=== PATIENT | female | born 1935 | race Caucasian/White ===

== ENCOUNTER → 2017-07-16 | Outpatient (CLI) | payer MEDICARE, OTHER ==
[2017-07-16 10:22] LABS: ALBUMIN 3.7 g/dL (3.4-5.0); CALCIUM 8.9 mg/dL (8.5-10.1); POTASSIUM 3.7 mmol/L (3.5-5.1); TOTAL BILIRUBIN 0.4 mg/dL (0.2-1.0)
[2017-07-16 11:20] LABS: ALBUMIN/GLOBULIN RATIO 1.4 (1.0-1.7); CREATININE 0.5 mg/dL (0.6-1.0); GFR 118.7; TOTAL PROTEIN 6.4 g/dL (6.4-8.2)
[2017-07-17 04:07] LABS: HEMOGLOBIN A1C 5.7 % (4.8-5.6)
== END | disposition home or self-care (01) ==
LOC: SPEC 09:56
PROVIDERS: ATTEND Internal Medicine
DX: E11.9 Type 2 diabetes mellitus without complications (principal); I10 Essential (primary) hypertension; I48.91 Unspecified atrial fibrillation
CPT/HCPCS: 36415; 80053; 80061; 82043; 83036

== ENCOUNTER → 2017-09-08 | Outpatient (CLI) | payer MEDICARE, OTHER ==
[2017-09-08 15:12] LABS: BILIRUBIN,URINE NEG (NEG); CLARITY,URINE CLEAR; COLOR,URINE YELLOW; GLUCOSE,URINE NEG (NEG); NITRITE,URINE NEG (NEG); UROBILINOGEN,URINE 1 mg/dL (0.2 mg/dL)
[2017-09-08 15:13] LABS: BACTERIA,URINE 0 /HPF (0-FEW); SQUAMOUS EPITHELIAL CELL,UR FEW /LPF; WBC,URINE OCC /HPF (0-4)
== END | disposition home or self-care (01) ==
LOC: SPEC 14:24
PROVIDERS: ATTEND Internal Medicine
DX: Z00.00 Encounter for general adult medical examination without abnormal findings (principal)
CPT/HCPCS: 81001

== ENCOUNTER → 2018-01-04 | Outpatient (CLI) | payer MEDICARE, OTHER | END | disposition home or self-care (01) | LOC: SURG 09:57 | PROVIDERS: ATTEND Anesthesiology | DX: M47.26 Other spondylosis with radiculopathy, lumbar region (principal) | CPT/HCPCS: 99204 ==

== ENCOUNTER → 2018-03-01 | Outpatient (CLI) | payer MEDICARE, OTHER ==
[~2018-03-01] MED LIST: 0.9 % SODIUM CHLORIDE 10 ML VIAL ONE; BUPIVACAINE MPF 0.25% 10 ML VIAL. ONE; DEXAMETHASONE SOD PHOS 4 MG/ML VIAL ONE; IOHEXOL 300 MG/ML 50 ML VIAL. ONE; LIDOCAINE 1% PF 30 ML VIAL. ONE
== END ==
LOC: SURG 08:12
PROVIDERS: ATTEND Anesthesiology
DX: M54.16 Radiculopathy, lumbar region (principal)
CPT/HCPCS: 62323; J1100; J2001; J3490; Q9967

== ENCOUNTER → 2018-06-28 | Outpatient (CLI) | payer MEDICARE, OTHER ==
[~2018-06-28] MED LIST changes: -BUPIVACAINE MPF 0.25% 10 ML VIAL. ONE; +LIDOCAINE 1% PF 2 ML VIAL. ONE; -LIDOCAINE 1% PF 30 ML VIAL. ONE
== END | disposition home or self-care (01) ==
LOC: SURG 13:19
PROVIDERS: ATTEND Anesthesiology
DX: M54.16 Radiculopathy, lumbar region (principal); Z88.1 Allergy status to other antibiotic agents; Z79.84 Long term (current) use of oral hypoglycemic drugs; Z79.899 Other long term (current) drug therapy; M19.90 Unspecified osteoarthritis, unspecified site; Z98.890 Other specified postprocedural states
CPT/HCPCS: 64483; 64484; J1100; Q9967

== ENCOUNTER → 2018-09-06 | Outpatient (CLI) | payer MEDICARE, OTHER | END | disposition home or self-care (01) | LOC: SURG 13:17 | PROVIDERS: ATTEND Anesthesiology | DX: M47.26 Other spondylosis with radiculopathy, lumbar region (principal); I25.10 Atherosclerotic heart disease of native coronary artery without angina pectoris; I48.91 Unspecified atrial fibrillation; I10 Essential (primary) hypertension; M19.90 Unspecified osteoarthritis, unspecified site; Z88.1 Allergy status to other antibiotic agents; Z96.653 Presence of artificial knee joint, bilateral | CPT/HCPCS: 99214 ==

== ENCOUNTER 2019-01-06 15:50 | Emergency (ER) | payer MEDICARE, OTHER ==
[~2019-01-06] VITALS: Ht 165.1 cm; Wt 105.2 kg
--- NOTE | 2019-01-06 16:19 | PHYS DOC ---
Adult General Chief Complaint Chief Complaint: UPPER EXTREMITY PAIN [facility] HPI 83-year-old female presents with left upper extremity pain. The patient was walking with her walker and went to take a break. She only locked one side of the walker when she went to sit down at rolled out from under her. She stuck out her left hand to catch herself and she hit with her left arm outstretched and then rolled onto her backside. She denies hitting her head or losing consciousness. At this time her left wrist, forearm, and shoulder are sore and she wants to make sure that is not broken. She is able to move all of her joints. She denies any other injuries. Review of Systems Review of Systems Constitutional: Denies fever or chills [] Eyes: Denies change in visual acuity, redness, or eye pain [] HENT: Denies nasal congestion or sore throat [] Respiratory: Denies cough or shortness of breath [] Cardiovascular: No additional information not addressed in HPI [] GI: Denies abdominal pain, nausea, vomiting, bloody stools or diarrhea [] : Denies dysuria or hematuria [] Musculoskeletal: Left wrist, forearm, and shoulder pain[] Integument: Denies rash or skin lesions [] Neurologic: Denies headache, focal weakness or sensory changes [] Endocrine: Denies polyuria or polydipsia [] All other systems were reviewed and found to be within normal limits, except as documented in this note. Allergies Allergies Allergies Coded Allergies Type Severity Reaction Last Updated Verified amoxicillin Allergy Mild 01/06/19 Yes Physical Exam Physical Exam Constitutional: Well developed, well nourished, no acute distress, non-toxic appearance. [] HENT: Normocephalic, atraumatic, bilateral external ears normal, oropharynx moist, no oral exudates, nose normal. [] Eyes: PERRLA, EOMI, conjunctiva normal, no discharge. [] Neck: Normal range of motion, no tenderness, supple, no stridor. [] Cardiovascular:Heart rate regular rhythm, no murmur [] Lungs & Thorax: Bilateral breath sounds clear to auscultation [] Abdomen: Bowel sounds normal, soft, no tenderness, no masses, no pulsatile masses. [] Skin: Warm, dry, no erythema, no rash. [] Back: No tenderness, no CVA tenderness. [] Extremities: Mild swelling of the left wrist, normal range of motion, minimal pain with palpation, no gross deformity.[] Neurologic: Alert and oriented X 3, normal motor function, normal sensory function, no focal deficits noted. [] Psychologic: Affect normal, judgement normal, mood normal. [] EKG EKG [] Radiology/Procedures Radiology/Procedures [] Impressions: Indication:FALL TODAY ON OUTSTRETCHED WRIST. LEFT WRIST/FOREARM/SHOULDER PAIN TECHNIQUE: 3 views of the left shoulder, 2 views of the left forearm and 3 views of the left wrist COMPARISON:None FINDINGS: Shoulder: No acute fracture or dislocation. Moderate acromioclavicular joint osteoarthritis. Degenerative changes in the superolateral humeral head with mild remodeling of the undersurface of the acromion likely secondary to chronic rotator cuff pathology. Left lung is clear. Forearm: No acute fracture or dislocation. No elbow joint effusion. Wrist: Severe first CMC joint osteoarthritis. No acute fracture or dislocation. IMPRESSION: As above. Electronically signed by: Jules Vergara DO (01/06/2019 4:40 PM) [facility] DICTATED AND SIGNED BY: JULES VERGARA DO DATE: 01/06/19 1640 CC: HEIDY SEVERINO DO; RADHA GIFFORD MD Course & Med Decision Making Course & Med Decision Making Pertinent Labs and Imaging studies reviewed. (See chart for details) Patient's x-rays are negative for fracture. She appears to just have soft tissue injuries. I will advise conservative care. She is stable for discharge at this time. [] Dragon Disclaimer Dragon Disclaimer This electronic medical record was generated, in whole or in part, using a voice recognition dictation system. Departure Departure: Impression: Primary Impression: Fall involving chair as cause of accidental injury in residential institution as place of occurrence Disposition: 01 HOME, SELF-CARE Condition: STABLE Referrals: RADHA GIFFORD MD (PCP) Patient Instructions: Contusion, [id number] Problem Qualifiers Primary Impression: Fall involving chair as cause of accidental injury in residential institution as place of occurrence Encounter type: initial encounter Qualified Codes: W07.XXXA - Fall from chair, initial encounter; Y92.10 - Unspecified residential institution as the place of occurrence of the external cause HEIDY SEVERINO DO Jan 06, 2019 16:19
--- NOTE | 2019-01-06 16:43 | RAD ---
Indication:FALL TODAY ON OUTSTRETCHED WRIST. LEFT WRIST/FOREARM/SHOULDER PAIN TECHNIQUE: 3 views of the left shoulder, 2 views of the left forearm and 3 views of the left wrist COMPARISON:None FINDINGS: Shoulder: No acute fracture or dislocation. Moderate acromioclavicular joint osteoarthritis. Degenerative changes in the superolateral humeral head with mild remodeling of the undersurface of the acromion likely secondary to chronic rotator cuff pathology. Left lung is clear. Forearm: No acute fracture or dislocation. No elbow joint effusion. Wrist: Severe first CMC joint osteoarthritis. No acute fracture or dislocation. IMPRESSION: As above. Electronically signed by: Jules Lozano DO (01/06/2019 4:40 PM) [facility]
[2019-01-06] MEDS ORDERED: HYDR-3165 PO (17:25)
[2019-01-06] MEDS ORDERED: HYDROcodone/APAP 5/325MG 1 TAB TABLET ONE (17:26)
[2019-01-06] MEDS ORDERED: HYDROcodone/APAP 5/325MG 1 TAB TABLET PO ONE (17:30)
[2019-01-06 17:52] VITALS: BP 120/65
== END 2019-01-06 17:53 | disposition home or self-care (01) ==
LOC: ER 15:50
DX: M25.532 Pain in left wrist (principal); M79.632 Pain in left forearm; M25.512 Pain in left shoulder; G89.11 Acute pain due to trauma; R22.32 Localized swelling, mass and lump, left upper limb; Z88.1 Allergy status to other antibiotic agents; W18.39XA Other fall on same level, initial encounter; Y93.01 Activity, walking, marching and hiking; Y92.198 Other place in other specified residential institution as the place of occurrence of the external cause; Y99.8 Other external cause status
CPT/HCPCS: 29125; 73030; 73090; 73110; 99284

== ENCOUNTER → 2021-05-02 | Outpatient (CLI) | payer MEDICARE, OTHER ==
[~2021-05-02] MED LIST changes: -0.9 % SODIUM CHLORIDE 10 ML VIAL ONE; -DEXAMETHASONE SOD PHOS 4 MG/ML VIAL ONE; +HYDR-3165 PO; -IOHEXOL 300 MG/ML 50 ML VIAL. ONE; -LIDOCAINE 1% PF 2 ML VIAL. ONE
--- NOTE | 2021-05-02 13:46 | RAD ---
CT HEAD INDICATION: Reason: DIZZINESS / Spl. Instructions: / History: COMPARISON: None Available. Exposure: One or more of the following individualized dose reduction techniques were utilized for thi s examination: 1. Automated exposure control 2. Adjustment of the mA and/or kV according to patient size 3. Use of iterative reconstruction technique TECHNIQUE: 5 mm contiguous axial images were obtained from the skull base to the vertex in both bone and soft tissue algorithm. FINDINGS: Mild bilateral periventricular white matter hypodensities likely chronic small vessel ischemic diseas e. 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 No evidence of acute intracranial hemorrhage. No extra-axial fluid collections. No mass effect or midline shift. Ventricular size is appropriate. Basal cisterns are patent. No fractures identified.Giron-white differentiation is preserved.Globes and orbits are within normal l imits. Paranasal sinuses and mastoid air cells are clear. IMPRESSION: No acute intracranial findings. If symptoms persist consider follow-up MRI. Electronically signed by: Carlos Moser MD (05/02/2021 1:44 PM) [id number]
== END ==
LOC: CT 13:06
PROVIDERS: ATTEND Internal Medicine
DX: R42 Dizziness and giddiness (principal)
CPT/HCPCS: 70450